=== PATIENT | male | born 1965 | race Caucasian/White ===

== ENCOUNTER 2017-04-18 00:28 | Emergency (ER) | payer OTHER ==
[~2017-04-18] VITALS: Ht 182.9 cm; Wt 121.6 kg
[2017-04-18 01:02] LABS: HEMATOCRIT 42.1 % (38.0-50.0); MCH 30.6 PG (29.0-34.0); MCHC 34.7 G/DL (30.0-36.0); MCV 88.3 FL (86-99); MEAN PLAT.VOLUME 10.4 uM^3 (9.0-12.4); PLATELET COUNT 190 K/uL (156-360); RBC DIS.WIDTH-CV 12.6 % (11.8-14.6); RBC DIS.WIDTH-SD 40.8 % (39-53); RED BLOOD COUNT 4.77 M/uL (4.00-5.50); WHITE BLOOD COUNT 11.3 K/uL (4.1-10.2)
[2017-04-18 01:11] LABS: CHLORIDE 105 mEq/L (99-109); POTASSIUM 4.5 mEq/L (3.7-5.4); SODIUM 140 mEq/L (136-147)
[2017-04-18 01:13] LABS: GLUCOSE 120 mg/dL (70-99)
[2017-04-18 01:14] LABS: ANION GAP 12 MEQ/L (2-14)
[2017-04-18 01:15] LABS: TOTAL BILIRUBIN 0.3 mg/dL (0.0-1.0)
[2017-04-18 01:16] LABS: ALKALINE PHOSPHATASE 76 IU/L (3-129)
[2017-04-18 01:17] LABS: GFR ESTIMATE (CALCULATED) > 59 mL/min/
[2017-04-18 01:18] LABS: UREA NITROGEN (BUN) 20 mg/dL (9-23)
[2017-04-18 01:20] LABS: LIPASE 70 U/L (1.0-51.0)
[2017-04-18 02:04] LABS: ADD MIUA? NO; BILIRUBIN NEGATIVE; BLOOD NEGATIVE; COLOR YELLOW ((YELLOW)); GLUCOSE (STRIP) NEGATIVE; KETONES NEGATIVE; LEUKOCYTES NEGATIVE; NITRITE NEGATIVE; PROTEIN (STRIP) NEGATIVE; SPECIFIC GRAVITY 1.023 (1.000-1.030); UCUL ADDED? NO; UROBILINOGEN 0.2 MG/DL (0.2-1.0)
[2017-04-18] MEDS ORDERED: ZOFRAN ODT4 MG PO (03:22)
[2017-04-18] MEDS ORDERED: NORCO 5/3251 TABLET PO (03:22)
[2017-04-18 03:41] VITALS: BP 134/78
== END 2017-04-18 03:41 | disposition home or self-care (01) ==
LOC: EME 00:28
DX: K80.70 Calculus of gallbladder and bile duct without cholecystitis without obstruction (principal); K22.6 Gastro-esophageal laceration-hemorrhage syndrome; R42 Dizziness and giddiness; R06.02 Shortness of breath; F17.200 Nicotine dependence, unspecified, uncomplicated
CPT/HCPCS: 76705; 80053; 81003; 83690; 85027; 99281; 99284; J2270; J2405; J7030

== ENCOUNTER 2017-06-29 03:47 | Emergency (ER) | payer OTHER ==
[~2017-06-29] VITALS: Ht 182.9 cm; Wt 118.9 kg
[~2017-06-29 03:47] MED LIST: NORCO 5/3251 TABLET PO; ZOFRAN ODT4 MG PO
[2017-06-29 04:09] LABS: HEMATOCRIT 42.2 % (38.0-50.0); HEMOGLOBIN 14.7 G/DL (12.5-16.6); MCH 30.2 PG (29.0-34.0); MCHC 34.8 G/DL (30.0-36.0); MCV 86.8 FL (86-99); PLATELET COUNT 186 K/uL (156-360); RBC DIS.WIDTH-CV 12.9 % (11.8-14.6); RED BLOOD COUNT 4.86 M/uL (4.00-5.50); WHITE BLOOD COUNT 8.5 K/uL (4.1-10.2)
[2017-06-29 04:17] LABS: ALBUMIN 4.4 g/dL (3.2-4.8); CHLORIDE 105 mEq/L (99-109); POTASSIUM 4.4 mEq/L (3.7-5.4); SODIUM 137 mEq/L (136-147)
[2017-06-29 04:19] LABS: GLUCOSE 120 mg/dL (70-99); TOTAL PROTEIN 7.7 g/dL (6.4-8.3)
[2017-06-29 04:21] LABS: TOTAL BILIRUBIN 0.4 mg/dL (0.0-1.0)
[2017-06-29 04:23] LABS: ALKALINE PHOSPHATASE 87 IU/L (3-129); CREATININE 1.1 mg/dL (0.6-1.3); GFR ESTIMATE (CALCULATED) > 59 mL/min/ (58.99-99999)
[2017-06-29 04:24] LABS: UREA NITROGEN (BUN) 24 mg/dL (9-23)
[2017-06-29 04:25] LABS: AST (GOT) 23 IU/L (2-34)
[2017-06-29 04:26] LABS: ALT (GPT) 18 IU/L (3-49)
[2017-06-29 04:27] LABS: LIPASE 27 U/L (1.0-51.0)
[2017-06-29] MEDS ORDERED: ZOFRAN4 MG PO (05:04)
[2017-06-29] MEDS ORDERED: PERCOCET 5/31 TABLET PO (05:04)
[2017-06-29 05:19] VITALS: BP 150/94
[2017-07-02] MEDS ORDERED: CHANTIX1 MG PO (13:54)
== END 2017-06-29 05:19 | disposition home or self-care (01) ==
LOC: EME 03:47
DX: K80.50 Calculus of bile duct without cholangitis or cholecystitis without obstruction (principal); Z87.891 Personal history of nicotine dependence; Z87.19 Personal history of other diseases of the digestive system
CPT/HCPCS: 80053; 81003; 83690; 85027; 99281; 99285; J2405; J3010; J7030

== ENCOUNTER → 2017-07-02 | Outpatient (CLI) | payer OTHER ==
[~2017-07-02] MED LIST changes: +CHANTIX1 MG PO; +PERCOCET 5/31 TABLET PO; +ZOFRAN4 MG PO
== END | disposition home or self-care (01) ==
LOC: CDC 08:08
DX: Z01.810 Encounter for preprocedural cardiovascular examination (principal); K80.20 Calculus of gallbladder without cholecystitis without obstruction
CPT/HCPCS: 93000

== ENCOUNTER 2017-07-07 05:27 | Day surgery (SDC) | payer OTHER ==
[~2017-07-07] VITALS: Ht 182.9 cm; Wt 115.7 kg
[2017-07-07] MEDS ORDERED: PHENTERMINE HCL15 MG PO (05:46)
[2017-07-07 06:01] VITALS: BP 110/78
[2017-07-07] MEDS ORDERED: NORCO 5/3251 TABLET PO (08:25)
[2017-07-07 09:35] VITALS: BP 124/80
[2017-07-07 10:38] VITALS: BP 123/75
== END 2017-07-07 10:50 | disposition home or self-care (01) ==
LOC: SDC 05:27
PROC: 0FT44ZZ Resection of Gallbladder, Percutaneous Endoscopic Approach (ICD-10-PCS; principal; 2017-07-07)
DX: K80.10 Calculus of gallbladder with chronic cholecystitis without obstruction (principal); K21.9 Gastro-esophageal reflux disease without esophagitis; Z87.891 Personal history of nicotine dependence
CPT/HCPCS: 88304; J0330; J1100; J1170; J1885; J2405; J2710; J3010; S0074